=== PATIENT | female | born 1970 | race Caucasian/White ===

== ENCOUNTER → 2016-10-23 | Outpatient (CLI) | payer OTHER ==
[~2016-10-23] MED LIST: CALC600T9 PO; CARI350T28 PO; DEXA2TAB PO; IMT100 PO; LANS30CA63 PO; LISI-461 PO; LSX20 PO; OXYC-292 PO; OXYC-57 PO; PREG1CAP70 PO
--- NOTE | 2016-10-23 12:25 | DIAGNOSTIC IMAGING REPORT ---
CHEST 2 VIEWS ROUTINE HISTORY: Fever. R05 [id number] COMPARISON: Chest 01/23/2014. FINDINGS: No pneumothorax. No pleural effusions. The heart is normal in size. Thoracic spinal electrodes are identified. No focal lung consolidations to suggest pneumonia. No evidence for pulmonary edema. IMPRESSION: No focal lung consolidations to suggest pneumonia. Electronically signed by: Jaspal Ponce M.D. 10/23/2016 12:23 PM
== END | disposition home or self-care (01) ==
LOC: C.RAD1850 11:52
PROVIDERS: ATTEND Internal Medicine
DX: R05 Cough (principal)

== ENCOUNTER → 2017-01-02 | Outpatient (CLI) | payer OTHER ==
[2017-01-02 12:06] LABS: BASO % 0.8 %; BASO ABS # 0.08 K/uL (0-0.2); COMPLETE YES; EOS % 1.7 %; HEMATOCRIT 41.1 % (37-47); IG% 0.4 %; LYMPH % 25.9 %; LYMPH ABS # 2.69 K/uL (1.2-3.4); MEAN CELL VOLUME 89.9 fL (80-100); MEAN CORPUSCULAR HEMOGLOBIN 31.5 pg (25-34); MEAN PLATELET VOLUME 10.7 fL (7.4-10.4); MONO % 6.8 %; NEUT % 64.4 %; PLATELET COUNT 333 K/uL (130-400); RED BLOOD COUNT 4.57 M/uL (4.2-5.4)
[2017-01-02 12:20] LABS: ALT/SGPT 47 U/L (12-78); BLOOD UREA NITROGEN 12 mg/dl (7-18); BUN/CREATININE RATIO 16.7 (10-20); CALCIUM 9.4 mg/dl (8.5-10.1); CARBON DIOXIDE 27 mmol/L (21-32); CHLORIDE 102 mmol/L (98-107); CHOLESTEROL 220 mg/dl (0-200); CREATININE 0.69 mg/dl (0.60-1.20); GLUCOSE 102 mg/dl (70-99); POTASSIUM 3.7 mmol/L (3.5-5.1); SODIUM 139 mmol/L (136-145); TRIGLYCERIDES 226 mg/dl (0-150); VERY LOW DENSITY LIPOPROT CALC 45 mg/dl
[2017-01-02 12:23] LABS: ALKALINE PHOSPHATASE 78 U/L (45-117); AST/SGOT 39 U/L (15-37); CHOLESTEROL/HDL RATIO 4.1; HDL CHOLESTEROL 54 mg/dl; LDL CHOLESTEROL CALCULATED 121 mg/dl
[2017-01-02 12:36] LABS: ESTIMATED AVERAGE GLUCOSE 120 mg/dl; HA1C FLAG Normal (Normal)
== END | disposition home or self-care (01) ==
LOC: C.LAB1850 10:25
PROVIDERS: ATTEND Internal Medicine
DX: R73.01 Impaired fasting glucose (principal); G62.9 Polyneuropathy, unspecified; E78.1 Pure hyperglyceridemia; E55.9 Vitamin D deficiency, unspecified

== ENCOUNTER → 2017-01-27 | Outpatient (CLI) | payer OTHER ==
--- NOTE | 2017-01-27 11:13 | DIAGNOSTIC IMAGING REPORT ---
LEFT FOOT 3 VIEWS CLINICAL HISTORY: Left foot pain. FINDINGS: 3 views of the left foot are obtained. No prior studies are available for comparison at the time of dictation. The skeletal structures are well mineralized. No fracture is seen. Mild arthritic changes present the first metatarsophalangeal joint. The joint spaces of the foot are otherwise well-maintained. Degenerative spurring is noted along the dorsal aspect of the tarsal bones and there are large dorsal and plantar calcaneal enthesophytes. The overlying soft tissues are within normal limits. IMPRESSION: 1. No acute bony abnormality is seen in the left foot. 2. Mild degenerative change and large heel spurs as above. Electronically signed by: Bentley Ornelas M.D. 01/27/2017 11:11 AM Dictated Date/Time: 01/27/2017 11:09 AM
== END | disposition home or self-care (01) ==
LOC: C.RAD1850 10:04
PROVIDERS: ATTEND Internal Medicine
DX: M79.672 Pain in left foot (principal)

== ENCOUNTER → 2017-07-07 | Outpatient (CLI) | payer OTHER ==
[2017-07-07 12:14] LABS: BLOOD UREA NITROGEN 17 mg/dl (7-18); BUN/CREATININE RATIO 24.6 (10-20); CARBON DIOXIDE 28 mmol/L (21-32); CHLORIDE 107 mmol/L (98-107); CREATININE 0.68 mg/dl (0.60-1.20); GLUCOSE 124 mg/dl (70-99); POTASSIUM 3.8 mmol/L (3.5-5.1); SODIUM 141 mmol/L (136-145)
[2017-07-07 12:17] LABS: CHOLESTEROL 205 mg/dl (0-200); HDL CHOLESTEROL 51 mg/dl; LDL CHOLESTEROL CALCULATED 108 mg/dl; TRIGLYCERIDES 230 mg/dl (0-150); VERY LOW DENSITY LIPOPROT CALC 46 mg/dl
[2017-07-07 12:25] LABS: ESTIMATED AVERAGE GLUCOSE 131 mg/dl; HA1C FLAG Normal (Normal)
== END | disposition home or self-care (01) ==
LOC: C.LABPBG 08:18
PROVIDERS: ATTEND Internal Medicine
DX: I10 Essential (primary) hypertension (principal); R73.01 Impaired fasting glucose; G62.9 Polyneuropathy, unspecified; E55.9 Vitamin D deficiency, unspecified

== ENCOUNTER 2018-05-23 10:22 | Emergency (ER) | payer OTHER ==
[~2018-05-23] VITALS: Ht 170.2 cm; Wt 132.5 kg
[2018-05-23 10:26] VITALS: TEMP 36.7; Ht 170.2 cm; Wt 132.5 kg
[2018-05-23] MEDS ORDERED: HYDROmorphone INJ 1 MG/ML SYR IM STA ×2 (10:39→11:51)
[2018-05-23] MEDS ORDERED: DEXAMETHASONE SOD INJ 4 MG/ML 5 ML VIAL IM STA (10:39)
[2018-05-23] MEDS ORDERED: KETOROLAC TROMETHAMINE 60 MG/2 ML VIAL IM STA (10:39)
[2018-05-23] MEDS ORDERED: PROMETHAZINE HCL INJ 25 MG/ML 1 ML VIAL IM STA (10:39)
[2018-05-23] MEDS ORDERED: DEXAMETHASONE **PF** INJ 10 MG/ML VIAL ONE (10:52)
[2018-05-23] MEDS ORDERED: HYDR-4079 PO (11:12)
[2018-05-23] MEDS ORDERED: NRV/10 PO (11:12)
[2018-05-23] MEDS ORDERED: CYM30 PO (11:12)
[2018-05-23] MEDS ORDERED: METH4PAK PO (12:37)
[2018-05-23 12:44] VITALS: BP 131/88; PULSE 82; O2SAT 93
--- NOTE | 2018-05-23 17:05 | EMERGENCY ROOM VISIT NOTE ---
History First contact with patient: 10:30 Chief Complaint: LEG PAIN,LEG INJURY Stated Complaint: SCIATIC NERVE PAIN History of Present Illness The patient is a 47 year old female who presents to the Emergency Room with complaints of left sciatic pain. The patient reports that her pain started to exacerbate itself 6 days ago. She reports that the pain radiates all the way to her foot. She denies any left lower extremity weakness, bladder/bowel incontinence, saddle anesthesias, abdominal pain, fever or chills. The patient reports that she is currently in pain management. She has been taking [place] and Soma without relief. The patient has had multiple imaging studies of her back, and has also been to [facility] and deemed a nonsurgical candidate. She denies any recent injury to the back. She rates her discomfort a 10 out of 10. Review of Systems 10 system review was performed and was negative except for pertinent positives and negatives as indicated in history of present illness Past Medical/Surgical History Medical Problems: (1) Acute bronchitis (2) BODY MASS INDEX 40 AND OVER, ADULT (3) Carpal tunnel syndrome (4) Cellulitis of right hand (5) Chronic radicular low back pain (6) Chronic radicular pain of lower back (7) FAM HX-DIABETES MELLITUS (8) FAM HX-ISCHEM HEART DIS (9) FAMILY HISTORY OF OTHER CARDIOVASCULAR DISEASES (10) FAMILY HX-MALIGNANCY NOS (11) Fibromyalgia (12) Hypertension (13) OBESITY, NOS (14) Sinus Plasty Surgical Problems: (1) Hysterectomy Family History Diabetes mellitus FH: cancer FHx: heart disease Social History Smoking Status: Former Smoker Alcohol Use: none Marital Status: Housing Status: lives with significant other Occupation Status: unemployed Current/Historical Medications Scheduled Amlodipine Besylate (Amlodipine Besylate), 10 MG PO DAILY Calcium Carbonate-Vitamin D (Calcium + D), 2 TABS PO DAILY Duloxetine HCl (Duloxetine HCl), 30 MG PO DAILY Furosemide (Furosemide), 40 MG PO DAILY Lansoprazole (Prevacid), 30 MG PO QAM Methylprednisolone (Medrol Dosepak), 0 PO DAILY Scheduled PRN Carisoprodol (Soma), 350 MG PO DAILY PRN for Muscle Relaxer Hydrocodone/Acetaminophen 10MG/325MG ([place] 10MG/325MG), 1 TABS PO QID PRN for Pain Sumatriptan Succinate (Imitrex), 100 MG PO UD PRN for Migraine Physical Exam Vital Signs Date Time Temp Pulse Resp B/P (MAP) Pulse Ox O2 Delivery O2 Flow Rate FiO2 05/23/18 12:44 82 20 131/88 93 05/23/18 12:06 82 20 135/86 93 Room Air 05/23/18 10:26 36.7 86 20 158/93 95 Room Air Physical Exam CONSTITUTIONAL: Healthy and well nourished. Alert and oriented X 3 with positive affect. Patient appears in moderate discomfort from pain. HEENT: Normocephalic, atraumatic. Pupils equal, round and reactive. NECK: Full active range of motion without discomfort. MUSCULOSKELETAL: Examination shows tenderness to palpation through the lower lumbar region and left SI joint. Negative logroll. Positive sitting straight leg raise. Pedal pulses are intact. INTEGUMENTARY: No rash or other significant dermatologic conditions noted. NEUROLOGIC: Left lower extremity is sensory intact. Medical Decision & Procedures Medications Administered Medications (Trade) Dose Ordered Sig/Carlos Route Start Time Stop Time Status Last Admin Dose Admin Hydromorphone HCl (Dilaudid Inj) 1 mg ONE STAT IM 05/23/18 10:39 05/23/18 10:42 DC 05/23/18 10:55 1 MG Ketorolac Tromethamine (Toradol Inj) 60 mg NOW STAT IM 05/23/18 10:39 05/23/18 10:42 DC 05/23/18 10:57 60 MG Promethazine HCl (Phenergan Inj) 25 mg NOW STAT IM 05/23/18 10:39 05/23/18 10:42 DC 05/23/18 10:56 25 MG Dexamethasone Sodium Phosphate (Dexamethasone Inj Pf) 10 mg STK-MED ONCE .ROUTE 05/23/18 10:52 05/23/18 10:53 DC 05/23/18 10:57 10 MG Hydromorphone HCl (Dilaudid Inj) 1 mg ONE STAT IM 05/23/18 11:51 05/23/18 11:52 DC 05/23/18 12:08 1 MG ED Course Patient history and physical exam were performed. Nurse's notes were reviewed. Vital signs were reviewed, showing an elevated blood pressure 158/93. I did review prior medical records showing a few visits in the past for exacerbation of chronic lower back pain. I also reviewed the [place] Prescription Drug Monitoring Program, showing that the patient received prescriptions for both [place] and Soma on 05/21/18. The patient has revealed that she is in pain management and taking these medications. The patient was administered Dilaudid , Toradol, Decadron and Phenergan IM. She did require an additional dose of Dilaudid 1 mg IM prior to discharge. The patient reports that she has an appointment with the pain clinic tomorrow morning. She was instructed to return to the emergency department for any progressively worsening pain, bladder /bowel incontinence, saddle anesthesias or foot drop. The patient was happy with plan of care, voiced understanding of all discharge instructions, and rated her discomfort a 6 out of 10 at the conclusion of my exam. Medical Decision Patient presents with complaint of her typical sciatic pain. She has been unable to manage the pain at home. She denies symptoms to suggest cauda equina syndrome. She also has not had any recent trauma, therefore I do not feel that imaging studies are warranted. [place] Drug Monitoring Program Search Results: patient reviewed within database, see additional documentation Medication Reconcilliation Current Medication List: was personally reviewed by me Blood Pressure Screening Patient's blood pressure: Elevated blood pressure Blood pressure disposition: Elevated BP felt to be situational, Did not require urgent referral Impression Primary Impression: Left lumbar radiculitis Departure Information Dispostion Home / Self-Care Prescriptions Methylprednisolone (MEDROL DOSEPAK) 4 Mg John 0 PO DAILY, #1 PKT Prov: Carlos Saleh PA 05/23/18 Forms HOME CARE DOCUMENTATION FORM, IMPORTANT VISIT INFORMATION Patient Instructions My [facility] Additional Instructions Follow-up with the pain clinic tomorrow as scheduled. Take Medrol Dosepak as prescribed, next dose tomorrow morning. Return for any bladder/bowel incontinence, significant weakness of the left lower extremity or numbness of the inner thighs/pubic region.
== END 2018-05-23 12:46 | disposition home or self-care (01) ==
LOC: C.EDB 10:25 → C.EDD 12:46
DX: M54.16 Radiculopathy, lumbar region (principal); I10 Essential (primary) hypertension; Z87.891 Personal history of nicotine dependence; Z79.899 Other long term (current) drug therapy